=== PATIENT | female | born 1950 ===

== ENCOUNTER 2020-08-23 04:03 | Emergency (ER) | payer OTHER ==
[~2020-08-23] VITALS: Ht 157.5 cm; Wt 72.1 kg
[~2020-08-23 04:03] MED LIST: CARVEDILOL6.25 MG; CATAPRES0.2 MG; CELLCEPT500 MG; NEORAL25 MG PO; PREDNISONE5 MG/5 ML; VASOTEC10 MG; VISTARIL25 MG PO; ZOCOR20 MG
== END 2020-08-23 17:08 | disposition home or self-care (01) ==
LOC: ER 04:03
DX: K57.31 Diverticulosis of large intestine without perforation or abscess with bleeding (principal); K62.5 Hemorrhage of anus and rectum; I10 Essential (primary) hypertension